=== PATIENT | female | born 1970 | race American Indian/Alaskan Native ===

== ENCOUNTER 2019-11-27 08:10 | Observation (INO) | payer OTHER ==
[2019-11-27 08:38] LABS: Mean Corpuscular HGB Conc 27 % (30-34); Platelet Count 475 K/mm3 (140-440); Red Blood Count 3.09 M/mm3 (3.65-5.03)
[2019-11-27 08:40] LABS: Hemoglobin 4.8 gm/dl (10.1-14.3)
[2019-11-27 08:41] LABS: Mean Corpuscular Volume 58 fl (79-97); Red Cell Distribution Width 20.9 % (13.2-15.2)
[2019-11-27 10:33] LABS: INR 1.02 (0.87-1.13); Partial Thromboplastin Time 24.6 Sec. (24.2-36.6)
[2019-11-27 10:44] LABS: Albumin 4.1 g/dL (3.9-5); Calcium 9.2 mg/dL (8.4-10.2); Hemolysis Index 0
[2019-11-27 10:49] LABS: Alanine Aminotransferase < 5 units/L (7-56)
--- NOTE | 2019-11-27 10:54 | Emergency Department Report ---
ED General Adult HPI - General Chief complaint: Recheck/Abnormal Lab/Rx Stated complaint: TRANSFUSION Time Seen by Provider: 11/27/19 09:10 Source: patient Mode of arrival: Ambulatory Limitations: No Limitations - History of Present Illness Initial comments: Patient presents to emergency department with a chief complaint of exertional shortness of breath. Patient states she was contacted by her software consultant office and was instructed that her hemoglobin was 4.6 yesterday. Patient was supposed to come to the hospital yesterday but states the other doctors appointments to 10. Patient has a scheduled hysterectomy for tomorrow morning. Patient states she has a history of dysfunctional uterine bleeding secondary to fibroids. Patient denies any current pain -: Gradual Severity scale (0 -10): 0 Consistency: constant Improves with: none Worsens with: movement Associated Symptoms: denies other symptoms Treatments Prior to Arrival: none - Related Data Home Medications Medication Instructions Recorded Confirmed Last Taken Loratadine [Claritin] 10 mg PO DAILY PRN 11/22/19 11/22/19 Unknown Allergies Allergy/AdvReac Type Severity Reaction Status Date / Time Penicillins Allergy Hives Verified 11/22/19 18:03 ED Review of Systems ROS: Stated complaint: TRANSFUSION Other details as noted in HPI Comment: All other systems reviewed and negative Constitutional: denies: chills, fever Eyes: denies: eye pain, eye discharge, vision change ENT: denies: ear pain, throat pain Respiratory: SOB with exertion. denies: cough, shortness of breath, wheezing Cardiovascular: denies: chest pain, palpitations Endocrine: no symptoms reported Gastrointestinal: denies: abdominal pain, nausea, diarrhea Genitourinary: denies: urgency, dysuria, discharge Musculoskeletal: denies: back pain, joint swelling, arthralgia Skin: denies: rash, lesions Neurological: denies: headache, weakness, paresthesias Psychiatric: denies: anxiety, depression Hematological/Lymphatic: denies: easy bleeding, easy bruising ED Past Medical Hx - Past Medical History Previous Medical History?: Yes Additional medical history: Uterine fibroids - Surgical History Past Surgical History?: Yes Additional Surgical History: Tubal ligation - Social History Smoking Status: Never Smoker - Medications Home Medications: Home Medications Medication Instructions Recorded Confirmed Last Taken Type Loratadine [Claritin] 10 mg PO DAILY PRN 11/22/19 11/22/19 Unknown History ED Physical Exam - General Limitations: No Limitations General appearance: alert, in no apparent distress - Head Head exam: Present: atraumatic, normocephalic - Eye Eye exam: Present: normal appearance - ENT ENT exam: Present: mucous membranes moist - Neck Neck exam: Present: normal inspection - Respiratory Respiratory exam: Present: normal lung sounds bilaterally. Absent: respiratory distress - Cardiovascular Cardiovascular Exam: Present: regular rate, normal rhythm. Absent: systolic murmur, diastolic murmur, rubs, gallop - GI/Abdominal GI/Abdominal exam: Present: soft, normal bowel sounds. Absent: distended, tenderness - Rectal Rectal exam: Present: deferred - External exam: Present: other (deferred) Speculum exam: Present: other (deferred) Bi-manual exam: Present: other (deferred) - Extremities Exam Extremities exam: Present: normal inspection - Back Exam Back exam: Present: normal inspection - Neurological Exam Neurological exam: Present: alert, oriented X3 - Psychiatric Psychiatric exam: Present: normal affect, normal mood - Skin Skin exam: Present: warm, dry, intact, normal color. Absent: rash ED Course Vital Signs 11/27/19 08:17 Temperature 98.2 F Pulse Rate 100 H Respiratory 18 Rate Blood Pressure 150/80 [Right] O2 Sat by Pulse 100 Oximetry ED Medical Decision Making - Lab Data Result diagrams: 11/27/19 08:17 11/27/19 09:46 Lab Results 11/27/19 11/27/19 11/27/19 Range/Units 08:17 08:27 09:46 WBC 4.4 L (4.5-11.0) K/mm3 RBC 3.09 L (3.65-5.03) M/mm3 Hgb 4.8 L* (10.1-14.3) gm/dl Hct 18.0 L* (30.3-42.9) % MCV 58 L (79-97) fl MCH 16 L (28-32) pg MCHC 27 L (30-34) % RDW 20.9 H (13.2-15.2) % Plt Count 475 H (140-440) K/mm3 PT (12.2-14.9) Sec. INR (0.87-1.13) APTT (24.2-36.6) Sec. Sodium 141 (137-145) mmol/L Potassium 3.6 (3.6-5.0) mmol/L Chloride 105.6 (98-107) mmol/L Carbon Dioxide 20 L (22-30) mmol/L Anion Gap 19 mmol/L Creatinine 0.6 (0.6-1.2) mg/dL Estimated GFR > 60 ml/min Glucose 95 (65-100) mg/dL Calcium 9.2 (8.4-10.2) mg/dL Total Bilirubin 0.40 (0.1-1.2) mg/dL AST 13 (5-40) units/L ALT < 5 L (7-56) units/L Alkaline Phosphatase 42 (35-129) units/L Total Protein 8.0 (6.3-8.2) g/dL Albumin 4.1 (3.9-5) g/dL Albumin/Globulin Ratio 1.1 % Blood Type AB POSITIVE Antibody Screen Negative Crossmatch See Detail 11/27/19 Range/Units 09:46 WBC (4.5-11.0) K/mm3 RBC (3.65-5.03) M/mm3 Hgb (10.1-14.3) gm/dl Hct (30.3-42.9) % MCV (79-97) fl MCH (28-32) pg MCHC (30-34) % RDW (13.2-15.2) % Plt Count (140-440) K/mm3 PT 13.5 (12.2-14.9) Sec. INR 1.02 (0.87-1.13) APTT 24.6 (24.2-36.6) Sec. Sodium (137-145) mmol/L Potassium (3.6-5.0) mmol/L Chloride (98-107) mmol/L Carbon Dioxide (22-30) mmol/L Anion Gap mmol/L Creatinine (0.6-1.2) mg/dL Estimated GFR ml/min Glucose (65-100) mg/dL Calcium (8.4-10.2) mg/dL Total Bilirubin (0.1-1.2) mg/dL AST (5-40) units/L ALT (7-56) units/L Alkaline Phosphatase (35-129) units/L Total Protein (6.3-8.2) g/dL Albumin (3.9-5) g/dL Albumin/Globulin Ratio % Blood Type Antibody Screen Crossmatch - Medical Decision Making Transfusion protocol initiated in the ED Contacted the patient software consultant and the patient will go to [facility] for transfusion Critical Care Time: Yes Critical care time in (mins) excluding proc time.: 35 Critical care attestation.: If time is entered above; I have spent that time in minutes in the direct care of this critically ill patient, excluding procedure time. ED Disposition Clinical Impression: Anemia requiring transfusions, DUB (dysfunctional uterine bleeding) Disposition: TO HOME OR SELFCARE Is pt being admited?: Yes Does the pt Need Aspirin: No Condition: Fair Referrals: PRIMARY CARE, [Primary Care Provider] - 3-5 Days
[2019-11-27] MEDS ORDERED: SODIUM CHLORIDE 0.9% 500 ML 500 ML IV ONE (11:04)
[2019-11-27] MEDS ORDERED: ACETAMINOPHEN 325 MG TAB PO PRN (11:04)
[2019-11-27] MEDS ORDERED: D5W/LACTATED RINGERS 1,000 ML IV SCH (12:00)
[2019-11-27] MEDS ORDERED: diphenhydrAMINE 25 MG CAP PO ONE (12:00)
[2019-11-27 15:37] LABS: BUN/Creatinine Ratio 12; Blood Urea Nitrogen 7 mg/dL (7-17)
[2019-11-27 20:43] VITALS: BP 141/58
== END 2019-11-27 20:50 | disposition home or self-care (01) ==
LOC: ED 08:10 → OB 11:04
PROVIDERS: ADMIT Obstetrics & Gynecology; ATTEND Obstetrics & Gynecology
DX: D64.9 Anemia, unspecified (principal); N93.8 Other specified abnormal uterine and vaginal bleeding; D25.9 Leiomyoma of uterus, unspecified; Z98.51 Tubal ligation status; Z79.899 Other long term (current) drug therapy
CPT/HCPCS: 36415; 36430; 80053; 85027; 85610; 85730; 86850; 86900; 86901; 86920; 99291; G0378; J7040; P9016; J7121

== ENCOUNTER 2019-11-28 07:33 | Day surgery (SDC) | payer OTHER ==
[2019-11-26 12:44] LABS: Basophils % (Auto) 0.8 % (0.0-1.8); Eosinophils # (Auto) 0.1 K/mm3 (0.0-0.4); Eosinophils % (Auto) 1.3 % (0.0-4.3); Lymphocytes % (Auto) 27.4 % (13.4-35.0); Mean Corpuscular HGB Conc 28 % (30-34); Monocytes # (Auto) 0.4 K/mm3 (0.0-0.8); Monocytes % (Auto) 10.4 % (0.0-7.3); Platelet Count 460 K/mm3 (140-440); Red Blood Count 2.96 M/mm3 (3.65-5.03)
[2019-11-26 12:49] LABS: Hematocrit 16.8 % (30.3-42.9); Hemoglobin 4.6 gm/dl (10.1-14.3); Mean Corpuscular Volume 57 fl (79-97); Red Cell Distribution Width 20.9 % (13.2-15.2)
--- NOTE | 2019-11-27 15:43 | History and Physical Report ---
History of Present Illness Date of examination: 11/27/19 Date of admission: 11/27/2019 Chief complaint: uterine fibroids History of present illness: 48y/o with symptomatic uterine fibroids. The patient has significant dysfunctional bleeding that has caused profound iron deficiency anemia. Upon admission the patient's hemoglobin was 4.8 for which she was admitted and transfused 3 units prbcs. Pelvic imaging demonstrates a markedly enlarged fibroid uterus. The patient has elected for definitive surgical management. Past History Past Medical History: other (uterine fibroids; anemia) Past Surgical History: other (tubal ligation) [employer] History: fibroids Social history: single - Obstetrical History : 3 Para: 3 Hx # Term Pregnancies: 3 Number of Pregnancies: 0 Spontaneous Abortions: 0 Induced : 0 Number of Living Children: 3 Medications and Allergies Allergies Allergy/AdvReac Type Severity Reaction Status Date / Time Penicillins Allergy Hives Verified 11/22/19 18:03 Home Medications Medication Instructions Recorded Confirmed Last Taken Type Loratadine [Claritin] 10 mg PO DAILY PRN 11/22/19 11/27/19 Unknown History Active Meds: Active Medications Acetaminophen (Tylenol) 1,000 mg PO PREOP KURT Fentanyl (Sublimaze) 100 mcg IV ONCE PRN PRN Reason: sedation for nerve block Gabapentin (Gabapentin) 300 mg PO PREOP NR Stop: 11/28/19 23:59 Lactated Ringer's (Lactated Ringers) 1,000 mls @ 100 mls/hr IV DIRECT KURT Stop: 11/28/19 23:59 Midazolam HCl (Versed) 2 mg IV PREOP NR Stop: 11/28/19 23:59 Review of Systems All systems: negative Constitutional: fatigue, weakness Genitourinary: vaginal bleeding, pelvic pain - Vital Signs Vital signs: Vital Signs Temp Pulse Resp BP Pulse Ox 98.5 F 87 20 159/72 100 11/26/19 12:05 11/26/19 12:05 11/26/19 12:05 11/26/19 12:05 11/26/19 12:05 Temp Pulse Resp BP Pulse Ox 98.5 F 87 20 159/72 100 11/26/19 12:05 11/26/19 12:05 11/26/19 12:05 11/26/19 12:05 11/26/19 12:05 - Physical Exam Breasts: Positive: deferred Cardiovascular: Regular rate Lungs: Positive: Clear to auscultation Results Result Diagrams: 11/26/19 12:10 All other labs normal. Assessment and Plan - Patient Problems (1) Leiomyoma Status: Acute Plan to address problem: will proceed with a robotic hysterectomy (2) Anemia requiring transfusions Status: Acute (3) DUB (dysfunctional uterine bleeding) Status: Acute
[~2019-11-28 07:33] MED LIST: ACETAMINOPHEN 500 MG TAB PO SCH; GABAPENTIN 300 MG CAP PO NR; GENTAMICIN/NS 80 MG/100 ML 100 ML IV SCH; LACTATED RINGERS 1,000 ML IV SCH; MIDAZOLAM 2 MG/2 ML INJ IV NR; fentaNYL 100 MCG/2 ML INJ IV PRN
--- NOTE | 2019-11-28 07:58 | Anesthesia Consultation ---
Anesthesia Consult and Med Hx Date of service: 11/28/19 - Airway Anesthetic Teeth Evaluation: Good ROM Head & Neck: Adequate Mental/Hyoid Distance: Adequate Mallampati Class: Class II Intubation Access Assessment: Probably Good - Pulmonary Exam CTA: Yes - Cardiac Exam Cardiac Exam: RRR - Pre-Operative Health Status ASA Pre-Surgery Classification: ASA2 Proposed Anesthetic Plan: General Nerve Block: TAP - Pulmonary Hx Smoking: No Hx Respiratory Symptoms: No - Cardiovascular System Hx Hypertension: No Hx Heart Attack/AMI: No Hx Cardia Arrhythmia: No - Central Nervous System CVA: No - Gastrointestinal Hx Gastroesophageal Reflux Disease: No - Endocrine Hx Renal Disease: No Hx Liver Disease: No Hx Insulin Dependent Diabetes: No Hx Non-Insulin Dependent Diabetes: No Hx Thyroid Disease: No - Hematic Hx Anemia: Yes - Other Systems Hx Obesity: No - Additional Comments Anesthesia Medical History Comments: No hx anesthetic complications. Hb noted to be <5 on preassessment labs. Patient received 3 units pRBCs yesterday at outside hospital. Will recheck H/H today prior to surgery.
[2019-11-28] MEDS ORDERED: SODIUM CHLORIDE 0.9% 1000 ML 1,000 ML IV SCH (08:15)
[2019-11-28] MEDS ORDERED: ONDANSETRON 4 MG/2 ML INJ IV PRN (08:16)
[2019-11-28] MEDS ORDERED: HYDROmorphone 1 MG/1 ML INJ IV PRN (08:16)
--- NOTE | 2019-11-28 08:16 | Anesthesia Day of Surgery ---
Anesthesia Day of Surgery - Day of Surgery Patient Examined: Yes Patient H&P Reviewed: Yes Patient is NPO: Yes
[2019-11-28] MEDS ORDERED: dexAMETHasone 4 MG/ML VIAL ONE (08:19)
[2019-11-28] MEDS ORDERED: cloNIDine/PF 1,000 MCG/10 ML VIAL EP ONE (08:19)
[2019-11-28] MEDS ORDERED: BUPIVACAINE-EPINEPHRINE/PF 0.25%-1:200,000 (30 ML) VIAL INFILTRATI ONE (08:20)
[2019-11-28 08:55] LABS: Hematocrit 27.7 % (30.3-42.9); Hemoglobin 8.7 gm/dl (10.1-14.3)
[2019-11-28] MEDS ORDERED: ROCURONIUM 50 MG/5 ML INJ IV ONE (09:31)
[2019-11-28] MEDS ORDERED: fentaNYL 100 MCG/2 ML INJ ONE (09:31)
[2019-11-28] MEDS ORDERED: propofoL 200 MG/20 ML VIAL IV ONE (09:31)
[2019-11-28] MEDS ORDERED: BUPIVACAINE/PF (0.5%) 5 MG/1 ML 30 ML VIAL INFILTRATI ONE (09:38)
[2019-11-28] MEDS ORDERED: SODIUM CHLORIDE 0.9% 500 ML 500 ML ONE (09:39)
--- NOTE | 2019-11-28 09:58 | Progress Note ---
Regional Anesthesia Block - Regional Anesthesia Block Performed By:: SELENA CHUNG Procedure: Patient consented for TAP block for post surgical pain management. Patient identified, monitors placed, and time out performed. Mid axillary TAP identified bilaterally via ultrasound. Skin prepped bilaterally with [chlorhexidine] and [20g stimuplex] needle advanced to the TAP. 30ml [Marcaine 0.25% with and Decadron 4mg] injected under ultrasound guidance on the [left] side. 30ml [Marcaine 0.25% with Decadron 4mg] injected under ultrasound guidance on the [right] side.
[2019-11-28] MEDS ORDERED: NEOMY 40 MG/POLYMYXIN B 200,000 UNITS/ML (GU) AMPULE IR ONE ×2 (10:16→11:12)
[2019-11-28] MEDS ORDERED: KETOROLAC 30 MG/1 ML INJ ONE (10:50)
[2019-11-28] MEDS ORDERED: dexAMETHasone 20 MG/5 ML VIAL ONE (10:50)
[2019-11-28] MEDS ORDERED: ONDANSETRON 4 MG/2 ML INJ ONE (10:50)
[2019-11-28] MEDS ORDERED: SODIUM CHLORIDE 0.9% IRRIG SOLN 2000 ML IR ONE (11:12)
[2019-11-28] MEDS ORDERED: SODIUM CHLORIDE 0.9% IRR 1,500 ML BOTTLE IR ONE (11:12)
[2019-11-28] MEDS ORDERED: ePHEDrine SULFATE 50 MG/1 ML INJ ONE (11:13)
[2019-11-28] MEDS ORDERED: NEOSTIGMINE 10MG/10 ML INJ MDV ONE (12:34)
[2019-11-28] MEDS ORDERED: GLYCOPYRROLATE 0.4 MG/2 ML INJ ONE (12:34)
--- NOTE | 2019-11-28 12:45 | Operative Report ---
Operative Report Operative Report: Date of surgery: November 28, 2019 Preoperative diagnoses: Symptomatic uterine fibroids; dysfunctional uterine bleeding; iron deficiency anemia secondary to chronic blood loss Postoperative diagnoses: Same as above Procedure: Robotic hysterectomy and bilateral salpingo-oophorectomy Surgeon: Carolina Lott M.D. Aquaculture Worker: Shazia Gonzalez Anesthesia: Gen. endotracheal anesthesia Estimated blood loss: 100 mL Pathology: Uterus, cervix, leiomyomas, bilateral tubes and ovaries Indication: 49-year-old -0-0-3 with a history of symptomatic uterine fibroids. The patient has significant uterine bleeding to the point of requiring transfusion prior to surgery. The patient was admitted and transfused 3 units of packed red blood cells preoperatively. Procedure: The patient was taken to the operating room and given general endotracheal anesthesia without complication. She is prepped and draped in a normal sterile fashion. A bivalve speculum was placed in the patient's vagina and a single- tooth tenaculum placed on the anterior lip of the cervix. The uterus was sounded with the uterine sound. A [employer] uterine manipulator was placed in the bivalve speculum was then removed. Attention was then turned to the patient's abdomen where a 12 millimeter supra umbilical skin incision was then made. A Veress needle was placed and peritoneal entry was verified water-filled syringe. Insufflation of the peritoneal cavity was performed with CO2 gas. The 12 mm trocar was then placed under direct visualization. An additional 8 mm trocar was placed on the patient's left and right lateral side just opposite of the supraumbilical trocar. An additional 5 mm right lateral trocar was then placed as the accessory port. The Anuel Phillips device was used to close the fascia of the 12 mm incision. The patient was then placed in steep Trendelenburg. The da Amita robot was then engaged. A fenestrated forcep was placed in arm 2 and a vessel sealer was placed in arm 1. General survey of the abdomen and pelvis revealed a markedly enlarged fibroid uterus approximately 15 to 16 weeks size with multiple leiomyomas. The surgeon then transferred to the surgical console. The infundibulopelvic ligament was then isolated on the right. The vessel sealer was used to coagulate the ligament which was then transected. The tube and ovary were transected from the supply. The round ligament was then coagulated and transected also. The vesicouterine peritoneum was then entered from the patient's right side. The uterine vessels were then coagulated with the vessel sealer. The vessels were then transected . Attention was then turned to the patient's left side where the infundibulopelvic ligament and mesosalpinx were again isolated coagulated and transected. The vesical peritoneum was then entered from the left and joined in the midline. Peritoneum was reflected off of the lower uterine segment. Uterine vessels were then coagulated and then transected. The blood supply to the uterus was adequately contained, a posterior colpotomy was made. The V care ring was visualized. Posterior colpotomy was created with the monopolar scissors. The incision was continued circumferentially until anterior colpotomy was made. The cervix and uterus were amputated from the vaginal cuff. The leiomyomas had to be extracted from the uterus in order to decrease the size of the uterus. The uterus was also bivalved to facilitate delivery through the vagina. The uterus was then removed along with the tubes and ovaries bilaterally through the vagina and a warm laparotomy sponge was placed and maintain the pneumoperitoneum. The vaginal cuff was then closed in a running fashion with V lock suture. Irrigation of the pelvis was performed. Gelfoam with thrombin was applied to the incision. The skin was then reapproximated with 4-0 Monocryl. The tissue was sent to pathology which included the cervix, uterus, leiomyomas, tubes and ovaries. The patient was then successfully extubated. She was then taken to the recovery room in stable condition. All sponge laps and needle counts were correct x2.
--- NOTE | 2019-11-28 16:06 | Post Anesthesia Evaluation ---
- Post Anesthesia Evaluation Patient Participated: Yes Airway Patent: Yes Stable Respiratory Function: Yes Nausea/Vomiting: No Temp > 96.8F: Yes Pain Manageable: Yes Adequeate Hydration: Yes Anesthesia Complications: No
[2019-11-28 20:40] VITALS: BP 142/68
== END 2019-11-28 07:34 | disposition home or self-care (01) ==
LOC: OR 07:33
PROVIDERS: ATTEND Obstetrics & Gynecology
DX: D50.0 Iron deficiency anemia secondary to blood loss (chronic) (principal); N93.8 Other specified abnormal uterine and vaginal bleeding; D27.0 Benign neoplasm of right ovary; D27.1 Benign neoplasm of left ovary; D25.0 Submucous leiomyoma of uterus; N83.02 Follicular cyst of left ovary; N83.01 Follicular cyst of right ovary; Z79.899 Other long term (current) drug therapy; Z88.0 Allergy status to penicillin; Z98.51 Tubal ligation status; Z98.890 Other specified postprocedural states
CPT/HCPCS: 36415; 58554; 84703; 85014; 85018; 85025; 86850; 86900; 86901; 88307; A4217; J0735; J1100; J1580; J1885; J2250; J2405; J2704; J2710; J3010; J7030; J7040; S2900; 64450